=== PATIENT | female | born 1990 | race Caucasian/White ===

== ENCOUNTER 2017-04-23 14:07 | Inpatient (IN) | payer SELFPAY ==
[2017-04-23] MEDS ORDERED: Nalbuphine 20 MG/1 ML Amp IVPUSH PRN (17:31)
[2017-04-23] MEDS ORDERED: Sodium Chloride 0.9% 10 ML Syringe FLUSH PRN (17:31)
[2017-04-23] MEDS ORDERED: Ondansetron 4 MG/2 ML SDV IVPUSH PRN (17:31)
--- NOTE | 2017-04-23 17:34 | PCM.LDHP ---
L&D History of Present Illness - General Date of Service: 04/23/17 Admit Problem/Dx: Patient Status Order with Admit Dx/Problem 04/23/17 17:32 Patient Status [ADT] Routine Admission Diagnosis/Problem Admission Diagnosis/Problem High risk Source of Information: Patient History Limitations: Reports: No Limitations - History of Present Illness Introduction:: Patient is a 26 y/o at 37 1/7 wks who presents from clinic for further monitoring. Has a history of preeclampsia/PROM in her first at 35 weeks. Has been on progesterone this . Presented for routine Ob appointment today noting a headache and an increase in diastolic BP to the mid 80's (departure from her normal). Labs were done and showed an elevated ALT of 92 (about twice upper limit of normal) and an AST of 38 (just outside of normal) . She was asked to present to L&D for serial BP's. Notes doing ok currently. Headache has actually subsided. Notes some fogginess. No other concerns. - Related Data Allergies/Adverse Reactions: Allergies Allergy/AdvReac Type Severity Reaction Status Date / Time No Known Allergies Allergy Verified 04/23/17 18:47 Home Medications: Home Meds Vits #93/Iron Fum/FA [ Formula Tablet] 1 each PO 04/23/17 [ History] Past Medical History Cardiovascular History: Reports: Other (See Below) (Hx of preeclampsia) FL[employer]ER History: Reports: : 2 Para: 1 LMP (Approximate): Social & Family History - Tobacco Use Smoking Status *Q: Never Smoker - Alcohol Use Alcohol Use History: No - Recreational Drug Use Recreational Drug Use: No H&P Review of Systems - Review of Systems: Review Of Systems: See Below General: Reports: Malaise HEENT: Reports: No Symptoms Pulmonary: Reports: No Symptoms Cardiovascular: Reports: No Symptoms Gastrointestinal: Reports: No Symptoms Genitourinary: Reports: No Symptoms Musculoskeletal: Reports: No Symptoms Neurological: Reports: Headache L&D Exam - Exam Exam: See Below - Vital Signs Weight: 84.958 kg - OB Specific Contraction Intensity: Irritability Movement: Active Heart Tones: Present Heart Tones per Min: 145 Heart Rate (FHR) Variability: Moderate (6-25 bmp) Presentation: Vertex - Tobias Score Tobias Score Cervix Position: Midposition Tobias Score Consistency: Soft Tobias Score Effacement: 51-70% Tobias Score Dilation: 1-2 cm Tobias Score 's Station: -2 Tobias Score Total: 7 - Exam General: Alert, Oriented, Cooperative Lungs: Clear to Auscultation, Normal Respiratory Effort Cardiovascular: Regular Rate, Regular Rhythm GI/Abdominal Exam: Soft, Non-Tender Genitourinary: Normal external exam Back Exam: Normal Inspection Extremities: Normal Inspection Skin: Warm, Dry, Intact Neurological: Hyperreflexia (in bilateral upper extremities ). No: Clonus DTR: 2+: Patella (L), Patella (R) - Patient Data Lab Results Last 24 hrs: Laboratory Results - last 24 hr 04/23/17 04/23/17 04/23/17 Range/Units 14:30 16:35 16:35 WBC 10.39 H (3.98-10.04) K/mm3 RBC 4.32 (3.98-5.22) M/mm3 Hgb 12.5 (11.2-15.7) gm/L Hct 36.7 (34.1-44.9) % MCV 85.0 (79.4-94.8) fl MCH 28.9 (25.6-32.2) pg MCHC 34.1 (32.2-35.5) g/dl RDW Std Deviation 41.9 (36.4-46.3) fL Plt Count 235 (182-369) K/mm3 MPV 9.0 L (9.4-12.3) fl Creatinine 0.5 L (0.55-1.02) mg/dL Est Cr Clr Drug Dosing 136.03 mL/min Estimated GFR (MDRD) > 60 (>60) mL/min AST 38 H (15-37) U/L ALT 89 H (14-59) U/L Urine Color Yellow (Yellow) Urine Appearance Slt cloudy H (Clear) Urine pH 6.5 (5.0-8.0) Ur Specific [place] 1.020 (1.005-1.030) Urine Protein Negative (Negative) Urine Glucose (UA) Negative (Negative) Urine Ketones 1+ H (Negative) Urine Occult Blood Negative (Negative) Urine Nitrite Negative (Negative) Urine Bilirubin Negative (Negative) Urine Urobilinogen 0.2 (0.2-1.0) Ur Leukocyte Esterase Negative (Negative) Result Diagrams: 04/23/17 16:35 04/23/17 16:35 - Problem List (1) 37 weeks gestation of SNOMED Code(s): 69864772 ICD Code: Z3A.37 - 37 WEEKS GESTATION OF Status: Acute Current Visit: Yes (2) Elevated liver enzymes SNOMED Code(s): 928293545 ICD Code: R74.8 - ABNORMAL LEVELS OF OTHER SERUM ENZYMES Status: Acute Current Visit: Yes (3) History of pre-eclampsia SNOMED Code(s): 566608615606152 ICD Code: Z87.59 - PERSONAL HISTORY OF COMP OF PREG, CHLDBRTH AND THE PUERP Status: Acute Current Visit: Yes Problem List Initiated/Reviewed/Updated: Yes Orders Last 24hrs: Active Orders 24 hr Category Date Time Status Patient Status [ADT] Routine ADT 04/23/17 17:32 Ordered Activity as Tolerated [RC] PFP Care 04/23/17 17:31 Ordered Communication Order [RC] ASDIRECTED Care 04/23/17 17:31 Ordered Communication Order [RC] ASDIRECTED Care 04/23/17 17:31 Ordered Communication Order [RC] ASDIRECTED Care 04/23/17 17:31 Ordered Heart Tones [RC] ASDIRECTED Care 04/23/17 17:31 Ordered Non Stress Test [RC] PER UNIT ROUTINE Care 04/23/17 14:19 Active Notify Provider [RC] ASDIRECTED Care 04/23/17 17:31 Ordered Notify Provider [RC] PFP Care 04/23/17 17:31 Ordered Notify Provider [RC] PRN Care 04/23/17 17:31 Ordered Peripheral IV Care [RC] . DIRECTED Care 04/23/17 17:31 Ordered Up ad Thea [RC] ASDIRECTED Care 04/23/17 17:31 Ordered Vaginal Exam [RC] ASDIRECTED Care 04/23/17 17:31 Ordered Vital Signs [RC] ASDIRECTED Care 04/23/17 17:31 Ordered Vital Signs [RC] PER UNIT ROUTINE Care 04/23/17 14:19 Active Vital Signs [RC] PER UNIT ROUTINE Care 04/23/17 17:31 Ordered Regular Diet [DIET] Diet 04/23/17 Dinner Active TYPE AND SCREEN [BBK] Routine Lab 04/23/17 17:31 Ordered Lactated Ringers [Ringers, Lactated] 1,000 ml Med 04/23/17 17:45 Ordered IV ASDIRECTED Nalbuphine [Nubain] Med 04/23/17 17:31 Ordered 10 mg IVPUSH Q2H PRN Ondansetron [Zofran] Med 04/23/17 17:31 Ordered 4 mg IVPUSH Q4H PRN Oxytocin/Lactated Ringers [Pitocin in LR 10 Units/1,000 Med 04/23/17 17:45 Ordered ML] 10 unit in 1,000 ml IV .CONTINUOUS Oxytocin/Lactated Ringers [Pitocin in LR 10 Units/1,000 Med 04/23/17 17:45 Ordered ML] 10 unit in 1,000 ml IV TITRATE Sodium Chloride 0.9% [Saline Flush] Med 04/23/17 17:31 Ordered 10 ml FLUSH ASDIRECTED PRN Electronic Heart Tones Ext w TOCO [WOMSER] Ot 04/23/17 17:31 Ordered Routine Electronic Heart Tones Internal [WOMSER] Per Unit Ot 04/23/17 17:31 Ordered Routine Peripheral IV Insertion Adult [OM.PC] Routine Oth 04/23/17 17:31 Ordered Resuscitation Status Routine Resus Stat 04/23/17 14:19 Ordered Assessment/Plan Comment:: 26 y/o at 37 1/7 wks gestation. Patient with elevated LFT's in L&D here. BP's essentially normal to upper normal range. Patient does have some findings of hyperreflexia on upper extremities and brisk reflexes in lower extremities. While not a perfect picture currently concern currently is for developing hypertensive/HELLP syndrome. (Does have history of this in last ). Given gestational age feel that it is most prudent to move forward with IOL and reassess labs in another 8-12 hours. She agrees. Plan pitocin for induction. AROM when able. Pain management per patient preference. GBS negative, no need for antibiotics
[2017-04-23] MEDS ORDERED: Oxytocin/Lactated Ringers 10 UNIT/1,000 ML BAG IV SCH ×2 (17:45)
[2017-04-23] MEDS: Lactated Ringers 1,000 ML IV SCH (18:47)
[2017-04-23] MEDS ORDERED: Misoprostol 25 MCG (1/4 of 100 MCG) Tab ONE (20:21)
[2017-04-23] MEDS ORDERED: Misoprostol 25 MCG (1/4 of 100 MCG) Tab VAG ONE (20:22)
--- NOTE | 2017-04-23 20:27 | PCM.SN ---
- Free Text/Narrative Note: 2000 Change in induction plan. Will start with Cytotec instead of pitocin for IOL. First just placed. Will reassess in 4 hours Heidi Boykin MD
[2017-04-23] MEDS ORDERED: Bupivacaine/fentaNYL/NS 100 ML Bag EPIDUR SCH (20:30)
[2017-04-23] MEDS ORDERED: ePHEDrine 50 MG/ML SDV IVPUSH PRN (20:30)
[2017-04-23] MEDS ORDERED: fentaNYL 100 MCG/2 ML SDV EPIDUR PRN (20:30)
[2017-04-23] MEDS ORDERED: diphenhydrAMINE 50 MG/ML SDV IVPUSH PRN (20:30)
[2017-04-24] MEDS ORDERED: Misoprostol 25 MCG (1/4 of 100 MCG) Tab VAG ONE (00:55)
[2017-04-24] MEDS: Lactated Ringers 1,000 ML IV SCH ×2 (01:12→18:32)
[2017-04-24] MEDS ORDERED: fentaNYL 100 MCG/2 ML SDV EPIDUR PRN (13:49)
[2017-04-24] MEDS ORDERED: ePHEDrine 50 MG/ML SDV IVPUSH PRN (13:49)
[2017-04-24] MEDS ORDERED: Ondansetron 4 MG/2 ML SDV IVPUSH PRN (13:49)
[2017-04-24] MEDS ORDERED: Bupivacaine/fentaNYL/NS 100 ML Bag EPIDUR SCH (14:00)
--- NOTE | 2017-04-24 16:38 | PCM.PNLD ---
Labor Progress Note - VS & Meds Vital Signs: Last Vital Signs Temp 37.2 C 04/23/17 14:19 Pulse 102 H 04/23/17 14:19 Resp 16 04/23/17 14:19 BP 128/74 04/23/17 14:19 Pulse Ox 100 04/23/17 14:19 Active Medications: Current Medications Diphenhydramine HCl (Benadryl) 25 mg IVPUSH Q6H PRN PRN Reason: Itching Ephedrine Sulfate (Ephedrine Sulfate) 5 mg IVPUSH ASDIRECTED PRN PRN Reason: HYPOTENTSION Fentanyl (Sublimaze) 100 mcg EPIDUR Q3H PRN PRN Reason: PAIN Fentanyl/Bupivacaine HCl (Fentanyl/Bupivacaine/Ns 2 Mcg-0.125% 100 Ml) 100 ml EPIDUR ASDIRECTED KERRI Lactated Ringer's (Ringers, Lactated) 1,000 mls @ 40 mls/hr IV ASDIRECTED KERRI Last Admin: 04/24/17 01:12 Dose: 40 mls/hr Oxytocin/Lactated Ringer's (Pitocin In Lr 10 Units/1,000 Ml) 10 unit in 1,000 mls @ 12 mls/hr IV TITRATE KERRI; 2 MUNITS/MIN PRN Reason: Protocol Oxytocin/Lactated Ringer's (Pitocin In Lr 10 Units/1,000 Ml) 10 unit in 1,000 mls @ 500 mls/hr IV .CONTINUOUS KERRI Nalbuphine HCl (Nubain) 10 mg IVPUSH Q2H PRN PRN Reason: Pain (moderate 4-6) Ondansetron HCl (Zofran) 4 mg IVPUSH Q4H PRN PRN Reason: Nausea/Vomiting Sodium Chloride (Saline Flush) 10 ml FLUSH ASDIRECTED PRN PRN Reason: Keep Vein Open Discontinued Medications Misoprostol (Cytotec) 25 mcg VAG ONETIME ONE Stop: 04/23/17 20:23 Last Admin: 04/23/17 20:23 Dose: 25 mcg Misoprostol (Cytotec) Confirm Administered Dose 25 mcg .ROUTE .STK-MED ONE Stop: 04/23/17 20:22 Last Admin: 04/23/17 23:29 Dose: Not Given Misoprostol (Cytotec) 25 mcg VAG ONETIME ONE Stop: 04/24/17 00:56 Last Admin: 04/24/17 01:06 Dose: 25 mcg - Uterine Contractions Uterine Monitoring Mode: External [place] Contraction Intensity: Mild to Moderate Uterine Resting Tone: Soft - Monitoring Monitor Mode: External Ultrasound Heart Rate (FHR) Baseline: 130 Heart Rate (FHR) Variability: Moderate (6-25 bmp) Accelerations: Present, 10x10 (=/<32 wks) Decelerations: None Strip Review: Category I - Vaginal Exam Dilation (cm): 1 Effacement (Percent): 50 Station: -2 Cervical Position: Anterior - Labor Progress (Free Text) Labor Progress: Doing well. Pitocin started at 0500. continue present management.
--- NOTE | 2017-04-24 16:38 | PCM.PNLD ---
Labor Progress Note - VS & Meds Vital Signs: Last Vital Signs Temp 37.2 C 04/23/17 14:19 Pulse 102 H 04/23/17 14:19 Resp 16 04/23/17 14:19 BP 128/74 04/23/17 14:19 Pulse Ox 100 04/23/17 14:19 Active Medications: Current Medications Diphenhydramine HCl (Benadryl) 25 mg IVPUSH Q6H PRN PRN Reason: Itching Ephedrine Sulfate (Ephedrine Sulfate) 5 mg IVPUSH ASDIRECTED PRN PRN Reason: HYPOTENTSION Fentanyl (Sublimaze) 100 mcg EPIDUR Q3H PRN PRN Reason: PAIN Fentanyl/Bupivacaine HCl (Fentanyl/Bupivacaine/Ns 2 Mcg-0.125% 100 Ml) 100 ml EPIDUR ASDIRECTED EKRRI Lactated Ringer's (Ringers, Lactated) 1,000 mls @ 40 mls/hr IV ASDIRECTED KERRI Last Admin: 04/24/17 01:12 Dose: 40 mls/hr Oxytocin/Lactated Ringer's (Pitocin In Lr 10 Units/1,000 Ml) 10 unit in 1,000 mls @ 12 mls/hr IV TITRATE KERRI; 2 MUNITS/MIN PRN Reason: Protocol Oxytocin/Lactated Ringer's (Pitocin In Lr 10 Units/1,000 Ml) 10 unit in 1,000 mls @ 500 mls/hr IV .CONTINUOUS KERRI Nalbuphine HCl (Nubain) 10 mg IVPUSH Q2H PRN PRN Reason: Pain (moderate 4-6) Ondansetron HCl (Zofran) 4 mg IVPUSH Q4H PRN PRN Reason: Nausea/Vomiting Sodium Chloride (Saline Flush) 10 ml FLUSH ASDIRECTED PRN PRN Reason: Keep Vein Open Discontinued Medications Misoprostol (Cytotec) 25 mcg VAG ONETIME ONE Stop: 04/23/17 20:23 Last Admin: 04/23/17 20:23 Dose: 25 mcg Misoprostol (Cytotec) Confirm Administered Dose 25 mcg .ROUTE .STK-MED ONE Stop: 04/23/17 20:22 Last Admin: 04/23/17 23:29 Dose: Not Given Misoprostol (Cytotec) 25 mcg VAG ONETIME ONE Stop: 04/24/17 00:56 Last Admin: 04/24/17 01:06 Dose: 25 mcg - Uterine Contractions Uterine Monitoring Mode: External [place] Contraction Intensity: Mild to Moderate Uterine Resting Tone: Soft - Monitoring Monitor Mode: External Ultrasound Heart Rate (FHR) Baseline: 130 Heart Rate (FHR) Variability: Moderate (6-25 bmp) Accelerations: Present, 10x10 (=/<32 wks) Decelerations: None Strip Review: Category I - Vaginal Exam Dilation (cm): 1 Effacement (Percent): 50 Station: -2 Cervical Position: Anterior - Labor Progress (Free Text) Labor Progress: Patient doing well. Attempted AROM, but unsuccessful due to positioning of cervix behind pubic bone. Mendoza bulb placed instead. Continue present management. Repeat labs at 1600
--- NOTE | 2017-04-24 16:39 | PCM.PREANE ---
Preanesthetic Assessment - Anesthesia/Transfusion/Family Hx Anesthesia History: Prior Anesthesia Without Reaction Family History of Anesthesia Reaction: No Transfusion History: No Prior Transfusion(s) Intubation History: Unknown - Review of Systems General: No Symptoms Pulmonary: No Symptoms Cardiovascular: No Symptoms (Pre-eclampsia noted with patient having a history of headache and fuzziness. Increased ALT, and AST noted), Palpitations Gastrointestinal: No Symptoms (GERD) Neurological: No Symptoms, Headache Other: Reports: None, Easy Bruising - Physical Assessment NPO Status Date: 04/24/17 NPO Status Time: 14:00 Pulse: 102 O2 Sat by Pulse Oximetry: 100 Respiratory Rate: 16 Blood Pressure: 128/74 Temperature: 37.2 C Vital Signs: Last Vital Signs Temp 37.2 C 04/23/17 14:19 Pulse 102 H 04/23/17 14:19 Resp 16 04/23/17 14:19 BP 128/74 04/23/17 14:19 Pulse Ox 100 04/23/17 14:19 Height: 1.57 m Weight: 84.958 kg ASA Class: 2 Mental Status: Alert & Oriented x3 Airway Class: Mallampati = 2 Dentition: Reports: Normal Dentition, Caries Thyro-Mental Finger Breadths: 3 Mouth Opening Finger Breadths: 3 ROM/Head Extension: Full Lungs: Clear to Auscultation, Normal Respiratory Effort Cardiovascular: Regular Rate, Regular Rhythm, No Murmurs - Lab Values: Laboratory Last Values WBC 10.39 K/mm3 (3.98-10.04) H 04/23/17 16:35 RBC 4.32 M/mm3 (3.98-5.22) 04/23/17 16:35 Hgb 12.5 gm/L (11.2-15.7) 04/23/17 16:35 Hct 36.7 % (34.1-44.9) 04/23/17 16:35 MCV 85.0 fl (79.4-94.8) 04/23/17 16:35 MCH 28.9 pg (25.6-32.2) 04/23/17 16:35 MCHC 34.1 g/dl (32.2-35.5) 04/23/17 16:35 RDW Std Deviation 41.9 fL (36.4-46.3) 04/23/17 16:35 Plt Count 235 K/mm3 (182-369) 04/23/17 16:35 MPV 9.0 fl (9.4-12.3) L 04/23/17 16:35 Creatinine 0.5 mg/dL (0.55-1.02) L 04/23/17 16:35 Est Cr Clr Drug Dosing 136.03 mL/min 04/23/17 16:35 Estimated GFR (MDRD) > 60 mL/min (>60) 04/23/17 16:35 AST 38 U/L (15-37) H 04/23/17 16:35 ALT 89 U/L (14-59) H 04/23/17 16:35 Urine Color Yellow (Yellow) 04/23/17 14:30 Urine Appearance Slt cloudy (Clear) H 04/23/17 14:30 Urine pH 6.5 (5.0-8.0) 04/23/17 14:30 Ur Specific [place] 1.020 (1.005-1.030) 04/23/17 14:30 Urine Protein Negative (Negative) 04/23/17 14:30 Urine Glucose (UA) Negative (Negative) 04/23/17 14:30 Urine Ketones 1+ (Negative) H 04/23/17 14:30 Urine Occult Blood Negative (Negative) 04/23/17 14:30 Urine Nitrite Negative (Negative) 04/23/17 14:30 Urine Bilirubin Negative (Negative) 04/23/17 14:30 Urine Urobilinogen 0.2 (0.2-1.0) 04/23/17 14:30 Ur Leukocyte Esterase Negative (Negative) 04/23/17 14:30 Blood Type AB NEGATIVE 04/23/17 17:05 Gel Antibody Screen Negative 04/23/17 17:05 Above labs reviewed and noted. 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: Neurological History: Reports: Concussion Other Neuro History: 2004 Psychiatric History: Reports: None - Past Surgical History HEENT Surgical History: Reports: None Cardiovascular Surgical History: Reports: None Neurological Surgical History: Reports: None Musculoskeletal Surgical History: Reports: Other (See Below) Other Musculoskeletal Surgeries/Procedures:: wrist surgery 2004 - SUBSTANCE USE Smoking Status *Q: Never Smoker Second Hand Smoke Exposure: No Recreational Drug Use History: No - HOME MEDS Home Medications: Home Meds Vits #93/Iron Fum/FA [ Formula Tablet] 1 each PO 04/23/17 [ History] - CURRENT (IN HOUSE) MEDS Current Meds: Current Medications Diphenhydramine HCl (Benadryl) 25 mg IVPUSH Q6H PRN PRN Reason: Itching Ephedrine Sulfate (Ephedrine Sulfate) 5 mg IVPUSH ASDIRECTED PRN PRN Reason: HYPOTENTSION Fentanyl (Sublimaze) 100 mcg EPIDUR Q3H PRN PRN Reason: PAIN Fentanyl/Bupivacaine HCl (Fentanyl/Bupivacaine/Ns 2 Mcg-0.125% 100 Ml) 100 ml EPIDUR ASDIRECTED KERRI Lactated Ringer's (Ringers, Lactated) 1,000 mls @ 40 mls/hr IV ASDIRECTED KERRI Last Admin: 04/24/17 01:12 Dose: 40 mls/hr Oxytocin/Lactated Ringer's (Pitocin In Lr 10 Units/1,000 Ml) 10 unit in 1,000 mls @ 12 mls/hr IV TITRATE KERRI; 2 MUNITS/MIN PRN Reason: Protocol Oxytocin/Lactated Ringer's (Pitocin In Lr 10 Units/1,000 Ml) 10 unit in 1,000 mls @ 500 mls/hr IV .CONTINUOUS KERRI Nalbuphine HCl (Nubain) 10 mg IVPUSH Q2H PRN PRN Reason: Pain (moderate 4-6) Ondansetron HCl (Zofran) 4 mg IVPUSH Q4H PRN PRN Reason: Nausea/Vomiting Sodium Chloride (Saline Flush) 10 ml FLUSH ASDIRECTED PRN PRN Reason: Keep Vein Open Discontinued Medications Misoprostol (Cytotec) 25 mcg VAG ONETIME ONE Stop: 04/23/17 20:23 Last Admin: 04/23/17 20:23 Dose: 25 mcg Misoprostol (Cytotec) Confirm Administered Dose 25 mcg .ROUTE .STK-MED ONE Stop: 04/23/17 20:22 Last Admin: 04/23/17 23:29 Dose: Not Given Misoprostol (Cytotec) 25 mcg VAG ONETIME ONE Stop: 04/24/17 00:56 Last Admin: 04/24/17 01:06 Dose: 25 mcg
--- NOTE | 2017-04-24 16:42 | PCM.PNLD ---
Labor Progress Note - VS & Meds Vital Signs: Last Vital Signs Temp 37.2 C 04/24/17 14:08 Pulse 102 H 04/24/17 14:08 Resp 16 04/24/17 14:08 BP 128/74 04/24/17 14:08 Pulse Ox 100 04/24/17 14:08 Active Medications: Current Medications Diphenhydramine HCl (Benadryl) 25 mg IVPUSH Q6H PRN PRN Reason: Itching Ephedrine Sulfate (Ephedrine Sulfate) 5 mg IVPUSH ASDIRECTED PRN PRN Reason: HYPOTENTSION Fentanyl (Sublimaze) 100 mcg EPIDUR Q3H PRN PRN Reason: PAIN Fentanyl/Bupivacaine HCl (Fentanyl/Bupivacaine/Ns 2 Mcg-0.125% 100 Ml) 100 ml EPIDUR ASDIRECTED KERRI Lactated Ringer's (Ringers, Lactated) 1,000 mls @ 40 mls/hr IV ASDIRECTED KERRI Last Admin: 04/24/17 01:12 Dose: 40 mls/hr Oxytocin/Lactated Ringer's (Pitocin In Lr 10 Units/1,000 Ml) 10 unit in 1,000 mls @ 12 mls/hr IV TITRATE KERRI; 2 MUNITS/MIN PRN Reason: Protocol Oxytocin/Lactated Ringer's (Pitocin In Lr 10 Units/1,000 Ml) 10 unit in 1,000 mls @ 500 mls/hr IV .CONTINUOUS KERRI Nalbuphine HCl (Nubain) 10 mg IVPUSH Q2H PRN PRN Reason: Pain (moderate 4-6) Ondansetron HCl (Zofran) 4 mg IVPUSH Q4H PRN PRN Reason: Nausea/Vomiting Sodium Chloride (Saline Flush) 10 ml FLUSH ASDIRECTED PRN PRN Reason: Keep Vein Open Discontinued Medications Misoprostol (Cytotec) 25 mcg VAG ONETIME ONE Stop: 04/23/17 20:23 Last Admin: 04/23/17 20:23 Dose: 25 mcg Misoprostol (Cytotec) Confirm Administered Dose 25 mcg .ROUTE .STK-MED ONE Stop: 04/23/17 20:22 Last Admin: 04/23/17 23:29 Dose: Not Given Misoprostol (Cytotec) 25 mcg VAG ONETIME ONE Stop: 04/24/17 00:56 Last Admin: 04/24/17 01:06 Dose: 25 mcg - Uterine Contractions Uterine Monitoring Mode: External [place] Contraction Intensity: Mild to Moderate Uterine Resting Tone: Soft - Monitoring Monitor Mode: External Ultrasound Heart Rate (FHR) Baseline: 140 Heart Rate (FHR) Variability: Moderate (6-25 bmp) Accelerations: Present, 10x10 (=/<32 wks) Decelerations: None Strip Review: Category I - Vaginal Exam Dilation (cm): 4 Effacement (Percent): 60 Station: -2 Cervical Position: Anterior - Labor Progress (Free Text) Labor Progress: Doing well. Mendoza bulb now out. AROM performed with release of clear fluid. Continue present management. Labs pending.
--- NOTE | 2017-04-24 19:22 | PCM.PNLD ---
Labor Progress Note - VS & Meds Vital Signs: Last Vital Signs Temp 37.2 C 04/24/17 14:08 Pulse 102 H 04/24/17 14:08 Resp 16 04/24/17 14:08 BP 128/74 04/24/17 14:08 Pulse Ox 100 04/24/17 14:08 Active Medications: Current Medications Diphenhydramine HCl (Benadryl) 25 mg IVPUSH Q6H PRN PRN Reason: Itching Ephedrine Sulfate (Ephedrine Sulfate) 5 mg IVPUSH ASDIRECTED PRN PRN Reason: HYPOTENTSION Fentanyl (Sublimaze) 100 mcg EPIDUR Q3H PRN PRN Reason: PAIN Last Admin: 04/24/17 18:34 Dose: 100 mcg Fentanyl/Bupivacaine HCl (Fentanyl/Bupivacaine/Ns 2 Mcg-0.125% 100 Ml) 100 ml EPIDUR ASDIRECTED KERRI Last Admin: 04/24/17 18:34 Dose: 100 ml Lactated Ringer's (Ringers, Lactated) 1,000 mls @ 40 mls/hr IV ASDIRECTED KERRI Last Admin: 04/24/17 18:32 Dose: 40 mls/hr Oxytocin/Lactated Ringer's (Pitocin In Lr 10 Units/1,000 Ml) 10 unit in 1,000 mls @ 12 mls/hr IV TITRATE KERRI; 2 MUNITS/MIN PRN Reason: Protocol Oxytocin/Lactated Ringer's (Pitocin In Lr 10 Units/1,000 Ml) 10 unit in 1,000 mls @ 500 mls/hr IV .CONTINUOUS KERRI Nalbuphine HCl (Nubain) 10 mg IVPUSH Q2H PRN PRN Reason: Pain (moderate 4-6) Last Admin: 04/24/17 16:50 Dose: 10 mg Ondansetron HCl (Zofran) 4 mg IVPUSH Q4H PRN PRN Reason: Nausea/Vomiting Ondansetron HCl (Zofran) 4 mg IVPUSH ONETIME PRN PRN Reason: Nausea/Vomiting Sodium Chloride (Saline Flush) 10 ml FLUSH ASDIRECTED PRN PRN Reason: Keep Vein Open Discontinued Medications Misoprostol (Cytotec) 25 mcg VAG ONETIME ONE Stop: 04/23/17 20:23 Last Admin: 04/23/17 20:23 Dose: 25 mcg Misoprostol (Cytotec) Confirm Administered Dose 25 mcg .ROUTE .STK-MED ONE Stop: 04/23/17 20:22 Last Admin: 04/23/17 23:29 Dose: Not Given Misoprostol (Cytotec) 25 mcg VAG ONETIME ONE Stop: 04/24/17 00:56 Last Admin: 04/24/17 01:06 Dose: 25 mcg - Uterine Contractions Uterine Monitoring Mode: External [place] Contraction Intensity: Moderate to Strong Uterine Resting Tone: Soft - Monitoring Monitor Mode: External Ultrasound Heart Rate (FHR) Baseline: 140 Heart Rate (FHR) Variability: Moderate (6-25 bmp) Accelerations: Present, 10x10 (=/<32 wks) Decelerations: None Strip Review: Category I - Vaginal Exam Dilation (cm): 4-5 Effacement (Percent): 80 Station: -1 Cervical Position: Anterior - Labor Progress (Free Text) Labor Progress: Patient doing well. Just received epidural. LFT's continue to slowly increase. Continue pitocin per protocol. Anticipate
--- NOTE | 2017-04-24 21:16 | PCM.DEL ---
L & D Note - General Info Date of Service: 04/24/17 - Delivery Note Labor: Induced by ARM, Induced by Oxytocin Cervical Ripening Method: Balloon Device, Misoprostil Delivery Outcome: Livebirth Infant Delivery Method: Spontaneous Vaginal Delivery-Single Delivery Mode: Spontaneous Presentation: Right Occiput Anterior (EMANI) Nuchal Cord: Present (tight and so not reduced) Anesthesia Type: Epidural Amniotic Fluid Description: Clear Episiotomy Type: None Laceration: 1st Degree, Perineal Suture type: Vicryl Suture size: 2-0 Placenta: Intact, Spontaneous Cord: 3 Vessels Estimated Blood Loss: 300 Resuscitation Needed: Yes : Bulb Syringe, Stimulated, Warmed, [place] Used, Warmer Used Score 1 min: 8 Score 5 min: 9 Delivery Comments (Free Text/Narrative):: Patient found to be complete and began pushing. With maternal pushing effort head delivered from an EMANI presentation. Nuchal cord present, but tight and so not reduced. With gentle downward traction the shoulders and body delivered. Infant placed on maternal abdomen. Cord clamped and cut. Cord blood obtained. Placenta allowed time to separate and spontaneously expelled. Inspection of the perineum showed a 1st degree laceration which was repaired in the typical fashion with a 2-0 vicryl rapide - Patient Data Vitals - Most Recent: Last Vital Signs Temp 37.2 C 04/24/17 14:08 Pulse 102 H 04/24/17 14:08 Resp 16 04/24/17 14:08 BP 128/74 04/24/17 14:08 Pulse Ox 100 04/24/17 14:08 Weight - Most Recent: 84.958 kg I&O - Last 24 Hours: Intake & Output 04/24/17 04/24/17 04/24/17 06:59 14:59 22:59 Intake Total 120 480 Balance 120 480 Lab Results Last 24 Hours: Laboratory Results - last 24 hr 04/23/17 04/24/17 04/24/17 Range/Units 17:05 04:42 04:42 Plt Count 218 (182-369) K/mm3 Creatinine 0.6 (0.55-1.02) mg/dL Est Cr Clr Drug Dosing 113.36 mL/min Estimated GFR (MDRD) > 60 (>60) mL/min AST 41 H (15-37) U/L ALT 94 H (14-59) U/L Blood Type O NEGATIVE Gel Antibody Screen Positive 04/24/17 04/24/17 Range/Units 16:11 16:11 Plt Count 236 (182-369) K/mm3 Creatinine 0.6 (0.55-1.02) mg/dL Est Cr Clr Drug Dosing 113.36 mL/min Estimated GFR (MDRD) > 60 (>60) mL/min AST 47 H (15-37) U/L ALT 103 H (14-59) U/L Blood Type Gel Antibody Screen Med Orders - Current: Current Medications Diphenhydramine HCl (Benadryl) 25 mg IVPUSH Q6H PRN PRN Reason: Itching Ephedrine Sulfate (Ephedrine Sulfate) 5 mg IVPUSH ASDIRECTED PRN PRN Reason: HYPOTENTSION Fentanyl (Sublimaze) 100 mcg EPIDUR Q3H PRN PRN Reason: PAIN Last Admin: 04/24/17 18:34 Dose: 100 mcg Fentanyl/Bupivacaine HCl (Fentanyl/Bupivacaine/Ns 2 Mcg-0.125% 100 Ml) 100 ml EPIDUR ASDIRECTED KERRI Last Admin: 04/24/17 18:34 Dose: 100 ml Lactated Ringer's (Ringers, Lactated) 1,000 mls @ 40 mls/hr IV ASDIRECTED KERRI Last Admin: 04/24/17 18:32 Dose: 40 mls/hr Oxytocin/Lactated Ringer's (Pitocin In Lr 10 Units/1,000 Ml) 10 unit in 1,000 mls @ 12 mls/hr IV TITRATE KERRI; 2 MUNITS/MIN PRN Reason: Protocol Last Titration: 04/24/17 20:02 Dose: 16 munits/min, 96 mls/hr Oxytocin/Lactated Ringer's (Pitocin In Lr 10 Units/1,000 Ml) 10 unit in 1,000 mls @ 500 mls/hr IV .CONTINUOUS KERRI Nalbuphine HCl (Nubain) 10 mg IVPUSH Q2H PRN PRN Reason: Pain (moderate 4-6) Last Admin: 04/24/17 16:50 Dose: 10 mg Ondansetron HCl (Zofran) 4 mg IVPUSH Q4H PRN PRN Reason: Nausea/Vomiting Ondansetron HCl (Zofran) 4 mg IVPUSH ONETIME PRN PRN Reason: Nausea/Vomiting Sodium Chloride (Saline Flush) 10 ml FLUSH ASDIRECTED PRN PRN Reason: Keep Vein Open Discontinued Medications Misoprostol (Cytotec) 25 mcg VAG ONETIME ONE Stop: 04/23/17 20:23 Last Admin: 04/23/17 20:23 Dose: 25 mcg Misoprostol (Cytotec) Confirm Administered Dose 25 mcg .ROUTE .STK-MED ONE Stop: 04/23/17 20:22 Last Admin: 04/23/17 23:29 Dose: Not Given Misoprostol (Cytotec) 25 mcg VAG ONETIME ONE Stop: 04/24/17 00:56 Last Admin: 04/24/17 01:06 Dose: 25 mcg - Problem List & Annotations (1) 37 weeks gestation of SNOMED Code(s): 27830324 Code(s): Z3A.37 - 37 WEEKS GESTATION OF Status: Acute Current Visit: Yes (2) Elevated liver enzymes SNOMED Code(s): 141967200 Code(s): R74.8 - ABNORMAL LEVELS OF OTHER SERUM ENZYMES Status: Acute Current Visit: Yes (3) History of pre-eclampsia SNOMED Code(s): 389015212942420 Code(s): Z87.59 - PERSONAL HISTORY OF COMP OF PREG, CHLDBRTH AND THE PUERP Status: Acute Current Visit: Yes (4) Vaginal delivery SNOMED Code(s): 692937547 Code(s): O80 - ENCOUNTER FOR FULL-TERM UNCOMPLICATED DELIVERY Status: Acute Current Visit: Yes - Problem List Review Problem List Initiated/Reviewed/Updated: Yes - Assessment Assessment:: 26 y/o G2 now P1102 PPD#0 from at 37 2/7 wks after IOL for concerns of developing BP disorder in - Plan Plan:: * Routine cares * Encourage breast feeding * No further lab assessment at this time * Discharge home in 1-2 days
[2017-04-24] MEDS ORDERED: Witch Hazel Medicated Pads 100/Jar TOP PRN (22:18)
[2017-04-24] MEDS ORDERED: Lanolin 100% Cream 7 GM Tube TOP PRN (22:18)
[2017-04-24] MEDS ORDERED: Benzocaine/Menthol 20%-0.5% Spray 56 GM Canister TOP PRN (22:18)
[2017-04-24] MEDS ORDERED: Docusate Sodium 100 MG Cap PO PRN (22:18)
[2017-04-24] MEDS ORDERED: Bupivacaine 0.25% 10 ML SDV ONE (22:22)
[2017-04-24] MEDS: Ibuprofen 600 MG Tab PO PRN (22:32)
[2017-04-25] MEDS: Ibuprofen 600 MG Tab PO PRN ×3 (05:01→16:59)
--- NOTE | 2017-04-25 07:17 | PCM.PNPP ---
- General Info Date of Service: 04/25/17 Functional Status: Reports: Pain Controlled, Tolerating Diet, Ambulating, Urinating - Review of Systems General: Reports: No Symptoms Pulmonary: Reports: No Symptoms Cardiovascular: Reports: No Symptoms Gastrointestinal: Reports: No Symptoms Genitourinary: Reports: No Symptoms Musculoskeletal: Reports: No Symptoms - Patient Data Vital Signs - Most Recent: Last Vital Signs Temp 37.3 C 04/25/17 02:35 Pulse 67 04/25/17 02:35 Resp 14 04/25/17 02:35 BP 109/75 04/25/17 02:35 Pulse Ox 98 04/25/17 02:35 Weight - Most Recent: 84.958 kg I&O - Last 24 Hours: Intake & Output 04/24/17 04/25/17 04/25/17 22:59 06:59 14:59 Intake Total 480 Balance 480 Lab Results - Last 24 Hours: Laboratory Results - last 24 hr 04/23/17 04/24/17 04/24/17 Range/Units 17:05 04:42 04:42 Plt Count 218 (182-369) K/mm3 Creatinine 0.6 (0.55-1.02) mg/dL Est Cr Clr Drug Dosing 113.36 mL/min Estimated GFR (MDRD) > 60 (>60) mL/min AST 41 H (15-37) U/L ALT 94 H (14-59) U/L Blood Type O NEGATIVE Gel Antibody Screen Positive Screen RhIG Candidate? Rhogam Indicated 04/24/17 04/24/17 04/25/17 Range/Units 16:11 16:11 04:15 Plt Count 236 (182-369) K/mm3 Creatinine 0.6 (0.55-1.02) mg/dL Est Cr Clr Drug Dosing 113.36 mL/min Estimated GFR (MDRD) > 60 (>60) mL/min AST 47 H (15-37) U/L ALT 103 H (14-59) U/L Blood Type O NEGATIVE Gel Antibody Screen Positive Screen 1 ros/5 flds - neg RhIG Candidate? Yes Rhogam Indicated Yes, baby rh pos H Med Orders - Current: Current Medications Acetaminophen (Tylenol) 650 mg PO Q4H PRN PRN Reason: mild pain or fever Benzocaine/Menthol (Dermoplast Pain Relief [place]) 0 gm TOP ASDIRECTED PRN PRN Reason: Perineal Comfort Measure Last Admin: 04/24/17 22:31 Dose: 1 canister Docusate Sodium (Colace) 100 mg PO BID PRN PRN Reason: Constipation Emollient Ointment (Lansinoh Hpa) 0 gm TOP ASDIRECTED PRN PRN Reason: Sore Nipples Ibuprofen (Motrin) 600 mg PO Q4H PRN PRN Reason: Mild pain or fever Last Admin: 04/25/17 05:01 Dose: 600 mg Witch Adriana (Tucks) 1 pad TOP ASDIRECTED PRN PRN Reason: Hemorrhoid pain Last Admin: 04/24/17 22:31 Dose: 1 container Discontinued Medications Diphenhydramine HCl (Benadryl) 25 mg IVPUSH Q6H PRN PRN Reason: Itching Ephedrine Sulfate (Ephedrine Sulfate) 5 mg IVPUSH ASDIRECTED PRN PRN Reason: HYPOTENTSION Fentanyl (Sublimaze) 100 mcg EPIDUR Q3H PRN PRN Reason: PAIN Last Admin: 04/24/17 18:34 Dose: 100 mcg Fentanyl/Bupivacaine HCl (Fentanyl/Bupivacaine/Ns 2 Mcg-0.125% 100 Ml) 100 ml EPIDUR ASDIRECTED KERRI Last Admin: 04/24/17 18:34 Dose: 100 ml Lactated Ringer's (Ringers, Lactated) 1,000 mls @ 40 mls/hr IV ASDIRECTED KERRI Last Admin: 04/24/17 18:32 Dose: 40 mls/hr Oxytocin/Lactated Ringer's (Pitocin In Lr 10 Units/1,000 Ml) 10 unit in 1,000 mls @ 12 mls/hr IV TITRATE KERRI; 2 MUNITS/MIN PRN Reason: Protocol Last Titration: 04/24/17 20:02 Dose: 16 munits/min, 96 mls/hr Oxytocin/Lactated Ringer's (Pitocin In Lr 10 Units/1,000 Ml) 10 unit in 1,000 mls @ 500 mls/hr IV .CONTINUOUS KERRI Last Admin: 04/24/17 21:03 Dose: 500 mls/hr Misoprostol (Cytotec) 25 mcg VAG ONETIME ONE Stop: 04/23/17 20:23 Last Admin: 04/23/17 20:23 Dose: 25 mcg Misoprostol (Cytotec) Confirm Administered Dose 25 mcg .ROUTE .STK-MED ONE Stop: 04/23/17 20:22 Last Admin: 04/23/17 23:29 Dose: Not Given Misoprostol (Cytotec) 25 mcg VAG ONETIME ONE Stop: 04/24/17 00:56 Last Admin: 04/24/17 01:06 Dose: 25 mcg Nalbuphine HCl (Nubain) 10 mg IVPUSH Q2H PRN PRN Reason: Pain (moderate 4-6) Last Admin: 04/24/17 16:50 Dose: 10 mg Ondansetron HCl (Zofran) 4 mg IVPUSH Q4H PRN PRN Reason: Nausea/Vomiting Ondansetron HCl (Zofran) 4 mg IVPUSH ONETIME PRN PRN Reason: Nausea/Vomiting Sodium Chloride (Saline Flush) 10 ml FLUSH ASDIRECTED PRN PRN Reason: Keep Vein Open - Interaction Disposition, : [place] in Room with Family Infant Interaction: Holding Infant Infant Feeding: Attempted ; Nursed Fair/Poor Support Person: - Recovery Exam Fundal Tone: Firm Fundal Level: At Umbilicus Fundal Placement: Midline Lochia Amount: Small Lochia Color: Rubra/Red Episiotomy/Laceration: Approximated Bladder Status: Voiding Urinary Elimination: Voided - Exam General: Alert, Oriented, Cooperative GI/Abdominal Exam: Soft, Non-Tender Extremities: Normal Inspection Skin: Warm, Dry, Intact - Problem List & Annotations (1) 37 weeks gestation of SNOMED Code(s): 11834618 Code(s): Z3A.37 - 37 WEEKS GESTATION OF Status: Acute Current Visit: Yes (2) Elevated liver enzymes SNOMED Code(s): 311547695 Code(s): R74.8 - ABNORMAL LEVELS OF OTHER SERUM ENZYMES Status: Acute Current Visit: Yes (3) History of pre-eclampsia SNOMED Code(s): 754219908954162 Code(s): Z87.59 - PERSONAL HISTORY OF COMP OF PREG, CHLDBRTH AND THE PUERP Status: Acute Current Visit: Yes (4) Vaginal delivery SNOMED Code(s): 249942976 Code(s): O80 - ENCOUNTER FOR FULL-TERM UNCOMPLICATED DELIVERY Status: Acute Current Visit: Yes (5) Rh negative state in antepartum period SNOMED Code(s): 520944778 Code(s): O09.899 - SUPERVISION OF OTHER HIGH RISK PREGNANCIES, UNSP TRIMESTER Status: Acute Current Visit: Yes - Problem List Review Problem List Initiated/Reviewed/Updated: Yes - My Orders Last 24 Hours: My Active Orders 04/24/17 22:18 Activity as Tolerated [RC] PER UNIT ROUTINE Vital Signs [RC] 04,12,20 Acetaminophen [Tylenol] 650 mg PO Q4H PRN Benzocaine/Menthol [Dermoplast Pain Relief [place]] See Dose Instructions TOP ASDIRECTED PRN Docusate Sodium [Colace] 100 mg PO BID PRN Ibuprofen [Motrin] 600 mg PO Q4H PRN Lanolin [Lansinoh HPA] See Dose Instructions TOP ASDIRECTED PRN Witch Adriana [Tucks] 1 pad TOP ASDIRECTED PRN Assess Lochia [WOMSER] Per Unit Routine Assess Uterine Involution [WOMSER] Per Unit Routine Breast Pump [WOMSER] Per Unit Routine Heat Therapy [OM.PC] PRN Ice Therapy [OM.PC] Per Unit Routine Perineal Care [OM.PC] Per Unit Routine Peripheral IV Discontinue [OM.PC] Routine Sitz Bath [OM.PC] Per Unit Routine 04/24/17 Breakfast Regular Diet [DIET] 04/25/17 04:15 SCREEN [BBK] Routine RH IMMUNE GLOBULIN [BBK] Routine RHOGAM, [RHIG WORKUP, ] [BBK] Routine 04/25/17 22:18 Heat Therapy [OM.PC] PRN - Assessment Assessment:: 26 y/o G2 now P1102 PPD#1 from at 37 2/7 wks after IOL for concerns of developing BP disorder in - Plan Plan:: * Routine cares * Encourage breast feeding * Baby Rh positive, patient to receive Rhogam * Discharge home today vs tomorrow pending patient preference
[2017-04-25] MEDS ORDERED: FLU Vacc QS 2017-18 (6mos UP)/PF 60 MCG/0.5 ML Syringe IM ONE (07:53)
[2017-04-25] MEDS: Acetaminophen 325 MG Tab PO PRN ×3 (08:12→20:25)
--- NOTE | 2017-04-25 14:44 | PCM48HPAN ---
Post Anesthesia Note - EVALUATION WITHIN 48HRS OF ANESTHETIC Vital Signs in Normal Range: Yes Patient Participated in Evaluation: Yes Respiratory Function Stable: Yes Airway Patent: Yes Cardiovascular Function Stable: Yes Hydration Status Stable: Yes Pain Control Satisfactory: Yes Nausea and Vomiting Control Satisfactory: Yes Mental Status Recovered: Yes
[2017-04-26] MEDS: Ibuprofen 600 MG Tab PO PRN ×2 (01:36→06:24)
--- NOTE | 2017-04-26 07:03 | PCM.PNPP ---
- General Info Date of Service: 04/26/17 Functional Status: Reports: Tolerating Diet, Ambulating, Urinating - Review of Systems General: Reports: No Symptoms Pulmonary: Reports: No Symptoms Cardiovascular: Reports: No Symptoms Gastrointestinal: Reports: Abdominal Pain (cramping) Genitourinary: Reports: No Symptoms Musculoskeletal: Reports: No Symptoms - Patient Data Vital Signs - Most Recent: Last Vital Signs Temp 36.6 C 04/26/17 04:29 Pulse 75 04/26/17 04:29 Resp 14 04/26/17 04:29 BP 101/60 04/26/17 04:29 Pulse Ox 98 04/26/17 04:29 Weight - Most Recent: 84.958 kg I&O - Last 24 Hours: Intake & Output 04/25/17 04/26/17 04/26/17 22:59 06:59 14:59 Intake Total 540 Balance 540 Lab Results - Last 24 Hours: Laboratory Results - last 24 hr 04/25/17 Range/Units 04:15 Blood Type O NEGATIVE Gel Antibody Screen Positive Screen 1 ros/5 flds - neg RhIG Candidate? Yes Rhogam Indicated Yes, baby rh pos H Med Orders - Current: Current Medications Acetaminophen (Tylenol) 650 mg PO Q4H PRN PRN Reason: mild pain or fever Last Admin: 04/25/17 20:25 Dose: 650 mg Benzocaine/Menthol (Dermoplast Pain Relief [place]) 0 gm TOP ASDIRECTED PRN PRN Reason: Perineal Comfort Measure Last Admin: 04/24/17 22:31 Dose: 1 canister Docusate Sodium (Colace) 100 mg PO BID PRN PRN Reason: Constipation Emollient Ointment (Lansinoh Hpa) 0 gm TOP ASDIRECTED PRN PRN Reason: Sore Nipples Last Admin: 04/25/17 22:39 Dose: 1 tube Ibuprofen (Motrin) 600 mg PO Q4H PRN PRN Reason: Mild pain or fever Last Admin: 04/26/17 06:24 Dose: 600 mg Witch Adriana (Tucks) 1 pad TOP ASDIRECTED PRN PRN Reason: Hemorrhoid pain Last Admin: 04/24/17 22:31 Dose: 1 container Discontinued Medications Diphenhydramine HCl (Benadryl) 25 mg IVPUSH Q6H PRN PRN Reason: Itching Ephedrine Sulfate (Ephedrine Sulfate) 5 mg IVPUSH ASDIRECTED PRN PRN Reason: HYPOTENTSION Fentanyl (Sublimaze) 100 mcg EPIDUR Q3H PRN PRN Reason: PAIN Last Admin: 04/24/17 18:34 Dose: 100 mcg Fentanyl/Bupivacaine HCl (Fentanyl/Bupivacaine/Ns 2 Mcg-0.125% 100 Ml) 100 ml EPIDUR ASDIRECTED KERRI Last Admin: 04/24/17 18:34 Dose: 100 ml Lactated Ringer's (Ringers, Lactated) 1,000 mls @ 40 mls/hr IV ASDIRECTED KERRI Last Admin: 04/24/17 18:32 Dose: 40 mls/hr Oxytocin/Lactated Ringer's (Pitocin In Lr 10 Units/1,000 Ml) 10 unit in 1,000 mls @ 12 mls/hr IV TITRATE KERRI; 2 MUNITS/MIN PRN Reason: Protocol Last Titration: 04/24/17 20:02 Dose: 16 munits/min, 96 mls/hr Oxytocin/Lactated Ringer's (Pitocin In Lr 10 Units/1,000 Ml) 10 unit in 1,000 mls @ 500 mls/hr IV .CONTINUOUS KERRI Last Admin: 04/24/17 21:03 Dose: 500 mls/hr Influenza Virus Vaccine (Flulaval Quad [id number]) 60 mcg IM .ONCE ONE Stop: 04/25/17 07:54 Last Admin: 04/25/17 08:14 Dose: 60 mcg Misoprostol (Cytotec) 25 mcg VAG ONETIME ONE Stop: 04/23/17 20:23 Last Admin: 04/23/17 20:23 Dose: 25 mcg Misoprostol (Cytotec) Confirm Administered Dose 25 mcg .ROUTE .STK-MED ONE Stop: 04/23/17 20:22 Last Admin: 04/23/17 23:29 Dose: Not Given Misoprostol (Cytotec) 25 mcg VAG ONETIME ONE Stop: 04/24/17 00:56 Last Admin: 04/24/17 01:06 Dose: 25 mcg Nalbuphine HCl (Nubain) 10 mg IVPUSH Q2H PRN PRN Reason: Pain (moderate 4-6) Last Admin: 04/24/17 16:50 Dose: 10 mg Ondansetron HCl (Zofran) 4 mg IVPUSH Q4H PRN PRN Reason: Nausea/Vomiting Ondansetron HCl (Zofran) 4 mg IVPUSH ONETIME PRN PRN Reason: Nausea/Vomiting Sodium Chloride (Saline Flush) 10 ml FLUSH ASDIRECTED PRN PRN Reason: Keep Vein Open - Interaction Infant Disposition, : in Room with Family Interaction: Holding Feeding: Attempted ; Nursed Fair/Poor Support Person: - Recovery Exam Fundal Tone: Firm Fundal Level: At Umbilicus Fundal Placement: Midline Lochia Amount: Small Lochia Color: Rubra/Red Perineum Description: Other (see below) Other Perinuem Description: 1st degree laceration with repair Episiotomy/Laceration: Approximated Bladder Status: Voiding Urinary Elimination: Voided - Exam General: Alert, Oriented, Cooperative GI/Abdominal Exam: Soft, Non-Tender Extremities: Normal Inspection Skin: Warm, Dry, Intact - Problem List & Annotations (1) 37 weeks gestation of SNOMED Code(s): 70601046 Code(s): Z3A.37 - 37 WEEKS GESTATION OF Status: Acute Current Visit: Yes (2) Elevated liver enzymes SNOMED Code(s): 106469243 Code(s): R74.8 - ABNORMAL LEVELS OF OTHER SERUM ENZYMES Status: Acute Current Visit: Yes (3) History of pre-eclampsia SNOMED Code(s): 710705790850605 Code(s): Z87.59 - PERSONAL HISTORY OF COMP OF PREG, CHLDBRTH AND THE PUERP Status: Acute Current Visit: Yes (4) Vaginal delivery SNOMED Code(s): 769174125 Code(s): O80 - ENCOUNTER FOR FULL-TERM UNCOMPLICATED DELIVERY Status: Acute Current Visit: Yes (5) Rh negative state in antepartum period SNOMED Code(s): 864672144 Code(s): O09.899 - SUPERVISION OF OTHER HIGH RISK PREGNANCIES, UNSP TRIMESTER Status: Acute Current Visit: Yes - Problem List Review Problem List Initiated/Reviewed/Updated: Yes - My Orders Last 24 Hours: My Active Orders 04/25/17 22:18 Heat Therapy [OM.PC] PRN 04/26/17 07:03 Ready for Discharge [RC] PER UNIT ROUTINE - Assessment Assessment:: 26 y/o G2 now P1102 PPD#2 from at 37 2/7 wks after IOL for concerns of developing BP disorder in - Plan Plan:: * Routine cares * Encourage breast feeding * Baby Rh positive, patient did receive Rhogam * Discharge home today
--- NOTE | 2017-04-26 07:03 | PCM.DCSUM1 ---
Discharge Summary - Discharge Data Discharge Date: 04/26/17 Discharge Disposition: Home, Self-Care 01 Condition: Good - Discharge Diagnosis/Problem(s) (1) 37 weeks gestation of SNOMED Code(s): 43055947 ICD Code: Z3A.37 - 37 WEEKS GESTATION OF Status: Acute Current Visit: Yes (2) Elevated liver enzymes SNOMED Code(s): 619385037 ICD Code: R74.8 - ABNORMAL LEVELS OF OTHER SERUM ENZYMES Status: Acute Current Visit: Yes (3) History of pre-eclampsia SNOMED Code(s): 394784271006045 ICD Code: Z87.59 - PERSONAL HISTORY OF COMP OF PREG, CHLDBRTH AND THE PUERP Status: Acute Current Visit: Yes (4) Vaginal delivery SNOMED Code(s): 020908157 ICD Code: O80 - ENCOUNTER FOR FULL-TERM UNCOMPLICATED DELIVERY Status: Acute Current Visit: Yes (5) Rh negative state in antepartum period SNOMED Code(s): 652541414 ICD Code: O09.899 - SUPERVISION OF OTHER HIGH RISK PREGNANCIES, UNSP TRIMESTER Status: Acute Current Visit: Yes - Patient Summary/Data Complications: None Consults: None Recommended Follow-up Testing/Procedures: Follow up in 2-5 weeks for check Hospital Course: Patient is a 26-year-old who presented to clinic at 37 1/7 weeks gestation with complaints of headache and findings of an upper limit of normal BP. She did have a history of preeclampsia in her prior with delivery at 35 weeks. Labs done and noted to have slightly elevated LFTs. She was counseled on these findings and recommendation for induction of labor. She did agree to this. Throughout induction her labs are repeated serially with steadily increasing LFTs values obtained although mild elevation overall. She did undergo an uncomplicated vaginal delivery. See delivery note for full details. she did well and was discharged home on day #2 - Patient Instructions Diet: Regular Diet as Tolerated Activity: As Tolerated Activity, Other: Pelvic Rest for 6 weeks Driving: May Drive Today Showering/Bathing: May Shower Showering/Bathing, Other: May Bathe Notify Provider of: Fever, Increased Pain, Swelling and Redness, Drainage, Nausea and/or Vomiting - Discharge Plan Home Medications: Home Meds Vits #93/Iron Fum/FA [ Formula Tablet] 1 each PO 04/23/17 [ History] Docusate Sodium [Colace] 100 mg PO BID PRN cap 04/25/17 [Rx] Ibuprofen [IJD: Ibuprofen] 600 mg PO Q4H PRN tablet 04/25/17 [Rx] Patient Handouts: Vaginal Delivery, Care After, Breast Pumping Tips, Easy-to- Read, Challenges and Solutions Referrals: Heidi Boykin MD [Primary Care Provider] - (3-6 weeks for check ) - Discharge Summary/Plan Comment DC Time >30 min.: No - Patient Data Vitals - Most Recent: Last Vital Signs Temp 36.6 C 04/26/17 04:29 Pulse 75 04/26/17 04:29 Resp 14 04/26/17 04:29 BP 101/60 04/26/17 04:29 Pulse Ox 98 04/26/17 04:29 Weight - Most Recent: 84.958 kg I&O - Last 24 hours: Intake & Output 04/25/17 04/26/17 04/26/17 22:59 06:59 14:59 Intake Total 540 Balance 540 Lab Results - Last 24 hrs: Laboratory Results - last 24 hr 04/25/17 Range/Units 04:15 Blood Type O NEGATIVE Gel Antibody Screen Positive Screen 1 ros/5 flds - neg RhIG Candidate? Yes Rhogam Indicated Yes, baby rh pos H Med Orders - Current: Current Medications Acetaminophen (Tylenol) 650 mg PO Q4H PRN PRN Reason: mild pain or fever Last Admin: 04/25/17 20:25 Dose: 650 mg Benzocaine/Menthol (Dermoplast Pain Relief [place]) 0 gm TOP ASDIRECTED PRN PRN Reason: Perineal Comfort Measure Last Admin: 04/24/17 22:31 Dose: 1 canister Docusate Sodium (Colace) 100 mg PO BID PRN PRN Reason: Constipation Emollient Ointment (Lansinoh Hpa) 0 gm TOP ASDIRECTED PRN PRN Reason: Sore Nipples Last Admin: 04/25/17 22:39 Dose: 1 tube Ibuprofen (Motrin) 600 mg PO Q4H PRN PRN Reason: Mild pain or fever Last Admin: 04/26/17 06:24 Dose: 600 mg Witch Adriana (Tucks) 1 pad TOP ASDIRECTED PRN PRN Reason: Hemorrhoid pain Last Admin: 04/24/17 22:31 Dose: 1 container Discontinued Medications Diphenhydramine HCl (Benadryl) 25 mg IVPUSH Q6H PRN PRN Reason: Itching Ephedrine Sulfate (Ephedrine Sulfate) 5 mg IVPUSH ASDIRECTED PRN PRN Reason: HYPOTENTSION Fentanyl (Sublimaze) 100 mcg EPIDUR Q3H PRN PRN Reason: PAIN Last Admin: 04/24/17 18:34 Dose: 100 mcg Fentanyl/Bupivacaine HCl (Fentanyl/Bupivacaine/Ns 2 Mcg-0.125% 100 Ml) 100 ml EPIDUR ASDIRECTED KERRI Last Admin: 04/24/17 18:34 Dose: 100 ml Lactated Ringer's (Ringers, Lactated) 1,000 mls @ 40 mls/hr IV ASDIRECTED KERRI Last Admin: 04/24/17 18:32 Dose: 40 mls/hr Oxytocin/Lactated Ringer's (Pitocin In Lr 10 Units/1,000 Ml) 10 unit in 1,000 mls @ 12 mls/hr IV TITRATE KERRI; 2 MUNITS/MIN PRN Reason: Protocol Last Titration: 04/24/17 20:02 Dose: 16 munits/min, 96 mls/hr Oxytocin/Lactated Ringer's (Pitocin In Lr 10 Units/1,000 Ml) 10 unit in 1,000 mls @ 500 mls/hr IV .CONTINUOUS KERRI Last Admin: 04/24/17 21:03 Dose: 500 mls/hr Influenza Virus Vaccine (Flulaval Quad [id number]) 60 mcg IM .ONCE ONE Stop: 04/25/17 07:54 Last Admin: 04/25/17 08:14 Dose: 60 mcg Misoprostol (Cytotec) 25 mcg VAG ONETIME ONE Stop: 04/23/17 20:23 Last Admin: 04/23/17 20:23 Dose: 25 mcg Misoprostol (Cytotec) Confirm Administered Dose 25 mcg .ROUTE .STK-MED ONE Stop: 04/23/17 20:22 Last Admin: 04/23/17 23:29 Dose: Not Given Misoprostol (Cytotec) 25 mcg VAG ONETIME ONE Stop: 04/24/17 00:56 Last Admin: 04/24/17 01:06 Dose: 25 mcg Nalbuphine HCl (Nubain) 10 mg IVPUSH Q2H PRN PRN Reason: Pain (moderate 4-6) Last Admin: 04/24/17 16:50 Dose: 10 mg Ondansetron HCl (Zofran) 4 mg IVPUSH Q4H PRN PRN Reason: Nausea/Vomiting Ondansetron HCl (Zofran) 4 mg IVPUSH ONETIME PRN PRN Reason: Nausea/Vomiting Sodium Chloride (Saline Flush) 10 ml FLUSH ASDIRECTED PRN PRN Reason: Keep Vein Open *Q Meaningful Use (DIS) - VTE *Q VTE Criteria *Q: - Stroke *Q Stroke Criteria *Q: - AMI *Q AMI Criteria *Q:
[2017-04-26] MEDS: Acetaminophen 325 MG Tab PO PRN (08:00)
== END 2017-04-26 10:20 | disposition home or self-care (01) | DRG 775 ==
LOC: JD.OBCHECK 14:07 → JD.OB 14:13 → JD.OBCHECK 17:31 → JD.OB 17:32 → OBSVTOIN 04-24 21:03
PROVIDERS: ADMIT Obstetrics & Gynecology; ATTEND Obstetrics & Gynecology
PROC: 10E0XZZ Delivery of Products of Conception, External Approach (ICD-10-PCS; principal; 2017-04-24)
PROC: 3E0P7VZ Introduction of Hormone into Female Reproductive, Via Natural or Artificial Opening (ICD-10-PCS; 2017-04-24)
PROC: 3E0P3VZ Introduction of Hormone into Female Reproductive, Percutaneous Approach (ICD-10-PCS; 2017-04-24)
PROC: 10907ZC Drainage of Amniotic Fluid, Therapeutic from Products of Conception, Via Natural or Artificial Opening (ICD-10-PCS; 2017-04-24)
PROC: 0HQ9XZZ Repair Perineum Skin, External Approach (ICD-10-PCS; 2017-04-24)
PROC: 00HU33Z Insertion of Infusion Device into Spinal Canal, Percutaneous Approach (ICD-10-PCS; 2017-04-24)
PROC: 3E0R3BZ Introduction of Anesthetic Agent into Spinal Canal, Percutaneous Approach (ICD-10-PCS; 2017-04-24)
DX: O75.89 Other specified complications of labor and delivery (principal); R79.89 Other specified abnormal findings of blood chemistry; Z87.59 Personal history of other complications of pregnancy, childbirth and the puerperium; O69.81X0 Labor and delivery complicated by cord around neck, without compression, not applicable or unspecified; O70.0 First degree perineal laceration during delivery
CPT/HCPCS: 01967; 36415; 51701; 59300; 59409; 81003; 82565; 84450; 84460; 85027; 85049; 85461; 86850; 86870; 86900; 86901; 90471; 90686; A9270-GY; J2300; J2590; J2790; J3010; J7120

== ENCOUNTER 2019-01-11 05:13 | Inpatient (IN) | payer OTHER ==
[~2019-01-11 05:13] MED LIST: Bupivacaine 0.25% 10 ML SDV ONE
[2019-01-11] MEDS ORDERED: Ondansetron 4 MG/2 ML SDV IVPUSH PRN ×2 (05:43→06:34)
[2019-01-11] MEDS ORDERED: Ampicillin 2 GM in Sodium Chloride 0.9% 100 ML IV ONE (05:43)
[2019-01-11] MEDS ORDERED: Sodium Chloride 0.9% 10 ML Syringe FLUSH PRN (05:43)
[2019-01-11] MEDS ORDERED: Lidocaine 1% 50 ML MDV INJECT ONE (05:43)
[2019-01-11] MEDS ORDERED: Calcium Carbonate 500 MG Tab.Chew PO PRN (05:43)
[2019-01-11] MEDS ORDERED: Acetaminophen 325 MG Tab PO PRN (05:43)
[2019-01-11] MEDS ORDERED: Nalbuphine 10 MG/1 ML Vial IVPUSH PRN (05:43)
[2019-01-11] MEDS ORDERED: Oxytocin/Lactated Ringers 10 UNIT/1,000 ML BAG IV SCH ×2 (05:45)
[2019-01-11] MEDS: Lactated Ringers 1,000 ML IV SCH ×3 (06:24→10:08)
[2019-01-11] MEDS ORDERED: ePHEDrine 50 MG/ML SDV IVPUSH PRN (06:34)
[2019-01-11] MEDS ORDERED: fentaNYL 100 MCG/2 ML SDV EPIDUR PRN (06:34)
--- NOTE | 2019-01-11 06:36 | PCM.PREANE ---
Preanesthetic Assessment - Anesthesia/Transfusion/Family Hx Anesthesia History: Prior Anesthesia Without Reaction Family History of Anesthesia Reaction: No Transfusion History: No Prior Transfusion(s) Intubation History: Unknown - Review of Systems General: No Symptoms Pulmonary: No Symptoms Cardiovascular: No Symptoms Gastrointestinal: No Symptoms (GERD) Neurological: No Symptoms (chronic lower back pain) Other: Reports: Easy Bruising - Physical Assessment NPO Status Date: 01/10/19 NPO Status Time: 20:00 Vital Signs: SM=761 B/P=117/65 RESP=16 Temp=98.6f Sat=99% Height: 1.55 m Weight: 93.894 kg ASA Class: 2 Mental Status: Alert & Oriented x3 Airway Class: Mallampati = 2 Dentition: Reports: Normal Dentition, Caries Thyro-Mental Finger Breadths: 3 Mouth Opening Finger Breadths: 3 ROM/Head Extension: Full Lungs: Clear to Auscultation, Normal Respiratory Effort Cardiovascular: Regular Rate, Regular Rhythm, No Murmurs - Lab Values: Laboratory Last Values WBC 10.88 K/mm3 (3.98-10.04) H 01/11/19 05:57 RBC 4.54 M/mm3 (3.98-5.22) 01/11/19 05:57 Hgb 13.0 gm/L (11.2-15.7) 01/11/19 05:57 Hct 37.9 % (34.1-44.9) 01/11/19 05:57 MCV 83.5 fl (79.4-94.8) 01/11/19 05:57 MCH 28.6 pg (25.6-32.2) 01/11/19 05:57 MCHC 34.3 g/dl (32.2-35.5) 01/11/19 05:57 RDW Std Deviation 41.5 fL (36.4-46.3) 01/11/19 05:57 Plt Count 245 K/mm3 (182-369) 01/11/19 05:57 MPV 9.0 fl (9.4-12.3) L 01/11/19 05:57 Neut % (Auto) 72.3 % (34.0-71.1) H 01/11/19 05:57 Lymph % (Auto) 17.9 % (19.3-51.7) L 01/11/19 05:57 [place] % (Auto) 7.2 % (4.7-12.5) 01/11/19 05:57 Eos % (Auto) 1.6 (0.7-5.8) 01/11/19 05:57 Baso % (Auto) 0.2 % (0.1-1.2) 01/11/19 05:57 Neut # (Auto) 7.87 K/mm3 (1.56-6.13) H 01/11/19 05:57 Lymph # (Auto) 1.95 K/mm3 (1.18-3.74) 01/11/19 05:57 Loving # (Auto) 0.78 K/mm3 (0.24-0.36) H 01/11/19 05:57 Eos # (Auto) 0.17 K/mm3 (0.04-0.36) 01/11/19 05:57 Baso # (Auto) 0.02 K/mm3 (0.01-0.08) 01/11/19 05:57 Above labs reviewed and noted and within acceptable ranges to proceed with epidural. 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: Neurological History: Reports: Concussion Other Neuro History: 2004 Psychiatric History: Reports: None - Past Surgical History HEENT Surgical History: Reports: None Cardiovascular Surgical History: Reports: None Neurological Surgical History: Reports: None Musculoskeletal Surgical History: Reports: Other (See Below) Other Musculoskeletal Surgeries/Procedures:: wrist surgery 2004 - HOME MEDS Home Medications: Home Meds Vits #93/Iron Fum/FA [ Formula Tablet] 1 each PO DAILY [History] - CURRENT (IN HOUSE) MEDS Current Meds: Current Medications Acetaminophen (Tylenol) 650 mg PO Q4H PRN PRN Reason: Pain (Mild 1-3) and fever Calcium Carbonate/Glycine (Tums) 1,000 mg PO Q2H PRN PRN Reason: Indigestion Ampicillin Sodium 1 gm/ Sodium (Chloride) 100 mls @ 200 mls/hr IV Q4H KERRI Lactated Ringer's (Ringers, Lactated) 1,000 mls @ 100 mls/hr IV ASDIRECTED KERRI Last Admin: 01/11/19 06:24 Dose: 100 mls/hr Oxytocin/Lactated Ringer's (Pitocin In Lr 10 Units/1,000 Ml) 10 unit in 1,000 mls @ 12 mls/hr IV TITRATE KERRI; Protocol Oxytocin/Lactated Ringer's (Pitocin In Lr 10 Units/1,000 Ml) 10 unit in 1,000 mls @ 500 mls/hr IV .CONTINUOUS KERRI Nalbuphine HCl (Nubain) 10 mg IVPUSH Q2H PRN PRN Reason: Pain Ondansetron HCl (Zofran) 4 mg IVPUSH Q4H PRN PRN Reason: Nausea/Vomiting Sodium Chloride (Saline Flush) 10 ml FLUSH ASDIRECTED PRN PRN Reason: Keep Vein Open Discontinued Medications Ampicillin Sodium 2 gm/ Sodium (Chloride) 100 mls @ 200 mls/hr IV ONETIME ONE Stop: 01/11/19 06:12 Last Admin: 01/11/19 06:21 Dose: 200 mls/hr Lidocaine HCl (Xylocaine 1%) 50 ml INJECT ONETIME ONE Stop: 01/11/19 05:44
[2019-01-11] MEDS ORDERED: Bupivacaine/fentaNYL/NS 100 ML Bag EPIDUR SCH (06:45)
--- NOTE | 2019-01-11 08:49 | PCM.LDHP ---
L&D History of Present Illness - General Date of Service: 01/11/19 Admit Problem/Dx: Patient Status Order with Admit Dx/Problem 01/11/19 05:21 Patient Status [ADT] Routine 01/11/19 07:36 Patient Status [ADT] Routine Admission Diagnosis/Problem Admission Diagnosis/Problem Source of Information: Patient - History of Present Illness Introduction:: 28 year old female at 37w2 days here in labor. PNC with Dr. Boykin without complications other than late care. 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: Neurological History: Reports: Concussion Other Neuro History: 2004 Psychiatric History: Reports: None - Infectious Disease History Infectious Disease History: Reports: None - Past Surgical History HEENT Surgical History: Reports: None Cardiovascular Surgical History: Reports: None Neurological Surgical History: Reports: None Musculoskeletal Surgical History: Reports: Other (See Below) Other Musculoskeletal Surgeries/Procedures:: wrist surgery 2004 Social & Family History - Family History Family Medical History: Noncontributory Cardiac: Reports: Hypertension Other Cardiac Family History: parents Respiratory: Reports: Sleep Apnea Other Respiratory Family Hisory: father - Tobacco Use Smoking Status *Q: Never Smoker Second Hand Smoke Exposure: No - Caffeine Use Caffeine Use: Reports: Soda - Recreational Drug Use Recreational Drug Use: No H&P Review of Systems - Review of Systems: Review Of Systems: See Below General: Reports: No Symptoms HEENT: Reports: No Symptoms Pulmonary: Reports: No Symptoms Cardiovascular: Reports: No Symptoms Gastrointestinal: Reports: No Symptoms Genitourinary: Reports: No Symptoms Musculoskeletal: Reports: No Symptoms Skin: Reports: No Symptoms Psychiatric: Reports: No Symptoms Neurological: Reports: No Symptoms Hematologic/Lymphatic: Reports: No Symptoms Immunologic: Reports: No Symptoms L&D Exam - Exam Exam: See Below - Vital Signs Vital Signs: Last Vital Signs Temp Pulse 111 H 01/11/19 05:21 Resp 16 01/11/19 05:21 BP 117/65 01/11/19 05:21 Pulse Ox 99 01/11/19 05:21 Weight: 93.894 kg - OB Specific Contraction Intensity: Strong Movement: Active Heart Tones: Present Heart Rate (FHR) Variability: Moderate (6-25 bmp) Presentation: Vertex - Tobias Score Tobias Score Cervix Position: Anterior Tobias Score Consistency: Soft Tobias Score Effacement: >80% Tobias Score Dilation: > 5 cm Tobias Score Infant's Station: -2 Tobias Score Total: 11 - Exam General: Alert, Oriented HEENT: PERRLA, Conjunctiva Clear, EACs Clear, EOMI, Hearing Intact, Mucosa Moist & [place], Nares Patent, Normal Nasal Septum, Posterior Pharynx Clear, TMs Clear Neck: Supple, Trachea Midline Lungs: Clear to Auscultation, Normal Respiratory Effort Cardiovascular: Regular Rate, Regular Rhythm GI/Abdominal Exam: Normal Bowel Sounds, Soft, Non-Tender, No Organomegaly, No Distention, No Abnormal Bruit, No Mass, Pelvis Stable Back Exam: Normal Inspection, Full Range of Motion Extremities: Normal Inspection, Normal Range of Motion, Non-Tender, No Pedal Edema, Normal Capillary Refill Skin: Warm, Dry, Intact Neurological: Cranial Nerves Intact, Reflexes Equal Bilateral Psychiatric: Alert, Normal Affect, Normal Mood - Patient Data Lab Results Last 24 hrs: Laboratory Results - last 24 hr 01/11/19 Range/Units 05:57 WBC 10.88 H (3.98-10.04) K/mm3 RBC 4.54 (3.98-5.22) M/mm3 Hgb 13.0 (11.2-15.7) gm/L Hct 37.9 (34.1-44.9) % MCV 83.5 (79.4-94.8) fl MCH 28.6 (25.6-32.2) pg MCHC 34.3 (32.2-35.5) g/dl RDW Std Deviation 41.5 (36.4-46.3) fL Plt Count 245 (182-369) K/mm3 MPV 9.0 L (9.4-12.3) fl Neut % (Auto) 72.3 H (34.0-71.1) % Lymph % (Auto) 17.9 L (19.3-51.7) % Roberts % (Auto) 7.2 (4.7-12.5) % Eos % (Auto) 1.6 (0.7-5.8) Baso % (Auto) 0.2 (0.1-1.2) % Neut # (Auto) 7.87 H (1.56-6.13) K/mm3 Lymph # (Auto) 1.95 (1.18-3.74) K/mm3 Roberts # (Auto) 0.78 H (0.24-0.36) K/mm3 Eos # (Auto) 0.17 (0.04-0.36) K/mm3 Baso # (Auto) 0.02 (0.01-0.08) K/mm3 Result Diagrams: 01/11/19 05:57 Problem List Initiated/Reviewed/Updated: Yes Orders Last 24hrs: Active Orders 24 hr Category Date Time Status Patient Status [ADT] Routine ADT 01/11/19 07:36 Active Activity as Tolerated [RC] PFP Care 01/11/19 05:44 Active Communication Order [RC] ASDIRECTED Care 01/11/19 05:44 Active Heart Tones [RC] ASDIRECTED Care 01/11/19 05:45 Active Notify Provider [RC] ASDIRECTED Care 01/11/19 06:33 Active Notify Provider [RC] PFP Care 01/11/19 05:44 Active Notify Provider [RC] PRN Care 01/11/19 05:44 Active Oxygen Therapy [RC] ASDIRECTED Care 01/11/19 06:33 Active Peripheral IV Care [RC] . DIRECTED Care 01/11/19 05:45 Active Pulse Oximetry [RC] ASDIRECTED Care 01/11/19 06:33 Active Vital Signs [RC] PER UNIT ROUTINE Care 01/11/19 05:21 Active Vital Signs [RC] PER UNIT ROUTINE Care 01/11/19 05:44 Active Regular Diet [DIET] Diet 01/11/19 Breakfast Active RAPID PLASMA REAGIN,RPR [CHEM] Routine Lab 01/11/19 05:57 Received Acetaminophen [Tylenol] Med 01/11/19 05:43 Active 650 mg PO Q4H PRN Ampicillin 1 gm Med 01/11/19 10:00 Active Sodium Chloride 0.9% [Normal Saline] 100 ml IV Q4H Bupivacaine/fentaNYL/NS [fentaNYL/Bupivacaine/NS 2 MCG- Med 01/11/19 06:45 Active 0.125% 100 ML] 100 ml EPIDUR ASDIRECTED Calcium Carbonate [Tums] Med 01/11/19 05:43 Active 1,000 mg PO Q2H PRN Lactated Ringers [Ringers, Lactated] 1,000 ml Med 01/11/19 05:45 Active IV ASDIRECTED Nalbuphine [Nubain] Med 01/11/19 05:43 Active 10 mg IVPUSH Q2H PRN Ondansetron [Zofran] Med 01/11/19 06:34 Active 4 mg IVPUSH ONETIME PRN Ondansetron [Zofran] Med 01/11/19 05:43 Active 4 mg IVPUSH Q4H PRN Oxytocin/Lactated Ringers [Pitocin in LR 10 Units/1,000 Med 01/11/19 05:45 Active ML] 10 unit in 1,000 ml IV .CONTINUOUS Oxytocin/Lactated Ringers [Pitocin in LR 10 Units/1,000 Med 01/11/19 05:45 Active ML] 10 unit in 1,000 ml IV TITRATE Sodium Chloride 0.9% [Saline Flush] Med 01/11/19 05:43 Active 10 ml FLUSH ASDIRECTED PRN ePHEDrine [ePHEDrine sulfate] Med 01/11/19 06:34 Active 5 mg IVPUSH ASDIRECTED PRN fentaNYL [Sublimaze] Med 01/11/19 06:34 Active 100 mcg EPIDUR Q3H PRN Electronic Heart Tones Ext w TOCO [WOMSER] Oth 01/11/19 05:44 Ordered Routine Electronic Heart Tones Internal [WOMSER] Per Unit Oth 01/11/19 05:44 Ordered Routine Peripheral IV Insertion Adult [OM.PC] Routine Oth 01/11/19 05:44 Ordered Resuscitation Status Routine Resus Stat 01/11/19 05:21 Ordered Medication Orders Acetaminophen (Tylenol) 650 mg PO Q4H PRN PRN Reason: Pain (Mild 1-3) and fever Calcium Carbonate/Glycine (Tums) 1,000 mg PO Q2H PRN PRN Reason: Indigestion Ephedrine Sulfate (Ephedrine Sulfate) 5 mg IVPUSH ASDIRECTED PRN PRN Reason: Hypotension Fentanyl (Sublimaze) 100 mcg EPIDUR Q3H PRN PRN Reason: Pain Last Admin: 01/11/19 07:01 Dose: 100 mcg Fentanyl/Bupivacaine HCl (Fentanyl/Bupivacaine/Ns 2 Mcg-0.125% 100 Ml) 100 ml EPIDUR ASDIRECTED KERRI Last Admin: 01/11/19 07:01 Dose: 100 ml Ampicillin Sodium 1 gm/ Sodium (Chloride) 100 mls @ 200 mls/hr IV Q4H KERRI Lactated Ringer's (Ringers, Lactated) 1,000 mls @ 100 mls/hr IV ASDIRECTED KERRI Last Admin: 01/11/19 07:13 Dose: 100 mls/hr Infusion: 01/11/19 07:13 Dose: 100 mls/hr Admin: 01/11/19 06:24 Dose: 100 mls/hr Oxytocin/Lactated Ringer's (Pitocin In Lr 10 Units/1,000 Ml) 10 unit in 1,000 mls @ 12 mls/hr IV TITRATE KERRI; Protocol Oxytocin/Lactated Ringer's (Pitocin In Lr 10 Units/1,000 Ml) 10 unit in 1,000 mls @ 500 mls/hr IV .CONTINUOUS KERRI Nalbuphine HCl (Nubain) 10 mg IVPUSH Q2H PRN PRN Reason: Pain Ondansetron HCl (Zofran) 4 mg IVPUSH Q4H PRN PRN Reason: Nausea/Vomiting Ondansetron HCl (Zofran) 4 mg IVPUSH ONETIME PRN PRN Reason: Nausea/Vomiting Sodium Chloride (Saline Flush) 10 ml FLUSH ASDIRECTED PRN PRN Reason: Keep Vein Open Assessment/Plan Comment:: 28 year old here in labor. Epidural prn AROM clear fluid. Anticipate
[2019-01-11] MEDS ORDERED: Ampicillin 1 GM in Sodium Chloride 0.9% 100 ML IV SCH (10:00)
--- NOTE | 2019-01-11 11:59 | PCM.SN ---
- Free Text/Narrative Note: Stage I - Patient presented with contractions in labor. Progressed nicely to complete with overall reassuring heart tones. Epidural anesthesia. Stage II - of viable female, weight 2830g, APGARS 8/9 at 2830g. Head delivered in controlled manner over intact perineum, body and shoulders without difficulty. Cord clamped and cut. Stage III - of intact placenta. 3vc. Small 2nd degree laceration repaired with 3-0 vicryl. EBL 300
[2019-01-11] MEDS ORDERED: Witch Hazel Medicated Pads 40/Jar TOP PRN (12:25)
[2019-01-11] MEDS ORDERED: Docusate Sodium 100 MG Cap PO PRN (12:25)
[2019-01-11] MEDS ORDERED: Benzocaine/Menthol 20%-0.5% Spray 56 GM Canister TOP PRN (12:25)
[2019-01-11] MEDS ORDERED: Lanolin 100% Cream 7 GM Tube TOP PRN (12:25)
[2019-01-11] MEDS: Ibuprofen 600 MG Tab PO PRN (17:43)
[2019-01-11] MEDS: Acetaminophen 325 MG Tab PO PRN (22:08)
[2019-01-12] MEDS: Ibuprofen 600 MG Tab PO PRN ×3 (01:05→13:03)
[2019-01-12] MEDS: Acetaminophen 325 MG Tab PO PRN ×3 (03:54→15:12)
--- NOTE | 2019-01-12 08:11 | PCM.DCSUM1 ---
Discharge Summary - Hospital Course Diagnosis: Stroke: No - Discharge Data Discharge Date: 01/12/19 Discharge Disposition: Home, Self-Care 01 Condition: Good - Patient Summary/Data Hospital Course: Unremarkable labor, delivery and course - Patient Instructions Diet: Usual Diet as Tolerated Activity: No Strenuous Activities Driving: May Drive Today Showering/Bathing: May Shower Notify Provider of: Fever, Increased Pain, Swelling and Redness, Drainage, Nausea and/or Vomiting - Discharge Plan *PRESCRIPTION DRUG MONITORING PROGRAM REVIEWED*: No *COPY OF PRESCRIPTION DRUG MONITORING REPORT IN PATIENT REMIGIO: No Home Medications: Home Meds Vits #93/Iron Fum/FA [ Formula Tablet] 1 each PO DAILY [History] Referrals: Heidi Boykin MD [Primary Care Provider] - (2 week) - Discharge Summary/Plan Comment DC Time >30 min.: No - General Info Date of Service: 01/12/19 Functional Status: Reports: Pain Controlled - Review of Systems General: Reports: No Symptoms HEENT: Reports: No Symptoms Pulmonary: Reports: No Symptoms Cardiovascular: Reports: No Symptoms Gastrointestinal: Reports: No Symptoms Genitourinary: Reports: No Symptoms Musculoskeletal: Reports: No Symptoms Skin: Reports: No Symptoms Neurological: Reports: No Symptoms Psychiatric: Reports: No Symptoms - Patient Data Vitals - Most Recent: Last Vital Signs Temp 36.6 C 01/12/19 02:36 Pulse 85 01/12/19 02:36 Resp 14 01/12/19 02:36 BP 110/69 01/12/19 02:36 Pulse Ox 97 01/12/19 02:36 Weight - Most Recent: 93.894 kg I&O - Last 24 hours: Intake & Output 01/11/19 01/12/19 01/12/19 22:59 06:59 14:59 Intake Total 322 Balance 322 Lab Results - Last 24 hrs: Laboratory Results - last 24 hr 01/11/19 01/11/19 Range/Units 05:57 15:00 RPR Non-reactive (NONREACTIVE) Blood Type O NEGATIVE Gel Antibody Screen Positive Screen 0 ros/5 flds - neg RhIG Candidate? Yes Rhogam Indicated Yes, baby rh pos H Med Orders - Current: Current Medications Acetaminophen (Tylenol) 650 mg PO Q4H PRN PRN Reason: Pain Last Admin: 01/12/19 03:54 Dose: 650 mg Benzocaine/Menthol (Dermoplast Pain Relief [place]) 0 gm TOP ASDIRECTED PRN PRN Reason: Perineal Comfort Measure Last Admin: 01/11/19 12:52 Dose: 1 applic Docusate Sodium (Colace) 100 mg PO BID PRN PRN Reason: Constipation Last Admin: 01/12/19 03:54 Dose: 100 mg Emollient Ointment (Lansinoh Hpa) 0 gm TOP ASDIRECTED PRN PRN Reason: Sore Nipples Ibuprofen (Motrin) 600 mg PO Q6H PRN PRN Reason: Mild pain or fever Last Admin: 01/12/19 07:03 Dose: 600 mg Witch Adriana (Tucks) 1 pad TOP ASDIRECTED PRN PRN Reason: Pain Last Admin: 01/11/19 12:51 Dose: 1 applic Discontinued Medications Acetaminophen (Tylenol) 650 mg PO Q4H PRN PRN Reason: Pain (Mild 1-3) and fever Calcium Carbonate/Glycine (Tums) 1,000 mg PO Q2H PRN PRN Reason: Indigestion Ephedrine Sulfate (Ephedrine Sulfate) 5 mg IVPUSH ASDIRECTED PRN PRN Reason: Hypotension Fentanyl (Sublimaze) 100 mcg EPIDUR Q3H PRN PRN Reason: Pain Last Admin: 01/11/19 07:01 Dose: 100 mcg Fentanyl/Bupivacaine HCl (Fentanyl/Bupivacaine/Ns 2 Mcg-0.125% 100 Ml) 100 ml EPIDUR ASDIRECTED [facility] Last Admin: 01/11/19 07:01 Dose: 100 ml Ampicillin Sodium 2 gm/ Sodium (Chloride) 100 mls @ 200 mls/hr IV ONETIME ONE Stop: 01/11/19 06:12 Last Admin: 01/11/19 06:21 Dose: 200 mls/hr Ampicillin Sodium 1 gm/ Sodium (Chloride) 100 mls @ 200 mls/hr IV Q4H [facility] Last Admin: 01/11/19 10:08 Dose: 200 mls/hr Lactated Ringer's (Ringers, Lactated) 1,000 mls @ 100 mls/hr IV ASDIRECTED [facility] Last Admin: 01/11/19 10:08 Dose: 100 mls/hr Oxytocin/Lactated Ringer's (Pitocin In Lr 10 Units/1,000 Ml) 10 unit in 1,000 mls @ 12 mls/hr IV TITRATE KERRI; Protocol Oxytocin/Lactated Ringer's (Pitocin In Lr 10 Units/1,000 Ml) 10 unit in 1,000 mls @ 500 mls/hr IV .CONTINUOUS KERRI Last Admin: 01/11/19 11:17 Dose: 500 mls/hr Lidocaine HCl (Xylocaine 1%) 50 ml INJECT ONETIME ONE Stop: 01/11/19 05:44 Last Admin: 01/11/19 10:26 Dose: Not Given Nalbuphine HCl (Nubain) 10 mg IVPUSH Q2H PRN PRN Reason: Pain Ondansetron HCl (Zofran) 4 mg IVPUSH Q4H PRN PRN Reason: Nausea/Vomiting Ondansetron HCl (Zofran) 4 mg IVPUSH ONETIME PRN PRN Reason: Nausea/Vomiting Sodium Chloride (Saline Flush) 10 ml FLUSH ASDIRECTED PRN PRN Reason: Keep Vein Open - Exam General: Reports: Alert, Oriented HEENT: Reports: Pupils Equal, Pupils Reactive, EOMI, Mucous Membr. Moist/[place] Neck: Reports: Supple Lungs: Reports: Clear to Auscultation, Normal Respiratory Effort Cardiovascular: Reports: Regular Rate, Regular Rhythm GI/Abdominal Exam: Normal Bowel Sounds, Soft, Non-Tender, No Organomegaly, No Distention, No Abnormal Bruit, No Mass, Pelvis Stable Rectal (Female) Exam: Normal Exam, Normal Rectal Tone Back Exam: Reports: Normal Inspection, Full Range of Motion Extremities: Normal Inspection, Normal Range of Motion, Non-Tender Skin: Reports: Warm, Dry, Intact Wound/Incisions: Reports: Healing Well Neurological: Reports: No New Focal Deficit Psy/Mental Status: Reports: Alert, Normal Affect
--- NOTE | 2019-01-12 11:27 | PCM48HPAN ---
Post Anesthesia Note - EVALUATION WITHIN 48HRS OF ANESTHETIC Vital Signs in Normal Range: Yes Patient Participated in Evaluation: Yes Respiratory Function Stable: Yes Airway Patent: Yes Cardiovascular Function Stable: Yes Hydration Status Stable: Yes Pain Control Satisfactory: Yes Nausea and Vomiting Control Satisfactory: Yes Mental Status Recovered: Yes Vital Signs: Last Vital Signs Temp 36.7 C 01/12/19 09:22 Pulse 99 01/12/19 09:22 Resp 14 01/12/19 09:22 BP 135/77 01/12/19 09:22 Pulse Ox 99 01/12/19 09:22 Above am VS noted and reviewed.
== END 2019-01-12 15:54 | disposition home or self-care (01) | DRG 807 ==
LOC: JD.OBCHECK 05:13 → JD.OB 05:14 → JD.OBCHECK 06:00 → UNDOADMOB 06:00 → JD.OB 07:36 → OBSVTOIN 11:15 → JD.OB 11:16
PROVIDERS: ADMIT Obstetrics & Gynecology; ATTEND Obstetrics & Gynecology
PROC: 10E0XZZ Delivery of Products of Conception, External Approach (ICD-10-PCS; principal; 2019-01-11)
PROC: 0KQM0ZZ Repair Perineum Muscle, Open Approach (ICD-10-PCS; 2019-01-11)
PROC: 10907ZC Drainage of Amniotic Fluid, Therapeutic from Products of Conception, Via Natural or Artificial Opening (ICD-10-PCS; 2019-01-11)
DX: O70.1 Second degree perineal laceration during delivery (principal); Z37.0 Single live birth; Z3A.37 37 weeks gestation of pregnancy; Z79.899 Other long term (current) drug therapy
CPT/HCPCS: 01967; 36415; 36430; 51702; 59025; 59409; 80306; 85025; 85461; 86592; 86850; 86870; 86900; 86901; A9270-GY; J0290; J2590; J2790; J3010; J3490; J7030; J7120

== ENCOUNTER 2023-03-16 15:17 | Emergency (ER) | payer BC, OTHER | END 2023-03-16 18:40 | disposition home or self-care (01) | LOC: JD.ED 15:17 | DX: S52.502A Unspecified fracture of the lower end of left radius, initial encounter for closed fracture (principal); W18.30XA Fall on same level, unspecified, initial encounter | CPT/HCPCS: 29125; 73090-26-LT; 73090-LT; 73110-26-LT; 73110-LT; 99282; 99283 ==

== ENCOUNTER 2024-01-26 22:31 | Emergency (ER) | payer BC ==
[2024-01-26] MEDS: Sodium Chloride 0.9% 10 ML Syringe FLUSH PRN (23:00)
[2024-01-26 23:22] LABS: BASOPHILS ABSOLUTE AUTO 0.1 K/mm3 (0.0-0.2); BASOPHILS PERCENT AUTO 0.8 % (0.0-1.0); EOSINOPHILS ABSOLUTE AUTO 0.1 K/mm3 (0.0-0.4); EOSINOPHILS PERCENT AUTO 2.2 % (0.0-6.0); HEMOGLOBIN 13.6 gm/dl (12.0-16.0); IMMATURE GRAN ABSOLUTE AUTO 0.02 K/mm3 (0.00-0.05); IMMATURE GRAN PERCENT AUTO 0.3 % (0.0-0.4); LYMPHOCYTES ABSOLUTE AUTO 2.1 K/mm3 (1.0-4.8); LYMPHOCYTES PERCENT AUTO 32.5 % (24.0-44.0); MEAN CORPUSCULAR HEMOGLOBIN 29.6 pg (28.0-32.0); MEAN CORPUSCULAR HGB CONC 34.9 g/dl (32.0-36.0); MONOCYTES ABSOLUTE AUTO 0.5 K/mm3 (0.0-0.8); MONOCYTES PERCENT AUTO 7.6 % (0.0-8.0); NEUTROPHILS ABSOLUTE AUTO 3.6 K/mm3 (1.8-7.7); NEUTROPHILS PERCENT AUTO 56.6 % (41.0-71.0); PLATELET COUNT,PLT 316 K/mm3 (150-400); RED BLOOD CELL COUNT 4.59 M/mm3 (4.10-5.30)
[2024-01-26 23:38] LABS: A/G RATIO 1.1 (1-2); ALBUMIN 3.5 g/dl (3.4-5.0); ANION GAP 13.8 (5-15); BILIRUBIN TOTAL 0.3 mg/dL (0.2-1.0); BUN/CREATININE RATIO 22.9 (14-18); CALCIUM 8.4 mg/dL (8.5-10.1); CREATININE 0.7 mg/dL (0.55-1.02); EST CRCL DRUG DOSING (CG) 82.88 mL/min; POTASSIUM,K 3.8 mEq/L (3.5-5.1); PROTEIN TOTAL,TP 6.6 g/dl (6.4-8.2)
== END 2024-01-27 02:05 | disposition home or self-care (01) ==
LOC: JD.ED 22:31
DX: R07.9 Chest pain, unspecified (principal)
CPT/HCPCS: 36415; 71045; 80053; 84484; 84703; 85025; 85379; 93005; 99285; J3490